=== PATIENT | male | born 1960 | race Caucasian/White ===

== ENCOUNTER 2020-12-20 06:55 | Observation (INO) | payer BC ==
[2020-12-16 10:25] LABS: BASOPHILS # (AUTO) 0.1 (0.0-0.1); BASOPHILS % 0.7 % (0.0-1.0); EOSINOPHILS # (AUTO) 0.1 (0.0-0.4); EOSINOPHILS % 0.9 % (0.0-6.0); HEMATOCRIT 43.2 % (38.2-49.6); HEMOGLOBIN 15.3 g/dL (14.0-18.0); LYMPHOCYTES # (AUTO) 1.8 (1.0-3.2); LYMPHOCYTES % 18.9 % (18.0-39.1); MEAN CORPUSCULAR HEMOGLOBIN 33.8 pg (28-32); MEAN CORPUSCULAR HGB CONC 35.4 g/dL (31-35); MEAN CORPUSCULAR VOLUME 95.6 fL (81-99); MONOCYTES # (AUTO) 0.8 (0.2-0.8); MONOCYTES % 8.1 % (4.4-11.3); NEUTROPHILS # (AUTO) 6.9 (2.1-6.9); NEUTROPHILS % 70.9 % (38.7-80.0); PLATELET COUNT 190 x10e3/uL (140-360); RED BLOOD COUNT 4.52 x10e6/uL (4.3-5.7); RED CELL DISTRIBUTION WIDTH 12.3 % (11.7-14.4)
[2020-12-16 10:43] LABS: ANION GAP 17.2 mmol/L (8-16); BLOOD UREA NITROGEN 9 mg/dL (7-26); BUN/CREATININE RATIO 11 (6-25); CALCIUM 9.2 mg/dL (8.4-10.2); CARBON DIOXIDE 21 mmol/L (22-29); CHLORIDE 99 mmol/L (98-107); EST GLOMERULAR FILTRATION RATE > 60 ML/MIN (60-); GLUCOSE 134 mg/dL (74-118); POTASSIUM 4.2 mmol/L (3.5-5.1); SODIUM 133 mmol/L (136-145)
[~2020-12-20] VITALS: Ht 177.8 cm; Wt 106.6 kg
[~2020-12-20 06:55] MED LIST: BUMETANIDE1 MG PO; CEFAZOLIN SOD 1 GM/NS 50ML 100 ML IV ONE; CELECOXIB 200 MG CAP ONE; DEXAMETHASONE SOD PHOS 10 MG/1 ML VIAL ONE; GABAPENTIN 300 MG CAP ONE; GEMFIBROZIL600 MG; LOPID600 MG PO; LOSARTAN POTAS100 MG PO; METOPROLOL SUCC50 MG PO; SPIRONOLACTONE25 MG PO; VERAPAMIL ER120 MG PO; WELCHOL625 MG PO
[2020-12-20] MEDS ORDERED: VANCOMYCIN HCL 500 MG ONE ×2 (07:04→09:08)
[2020-12-20] MEDS ORDERED: SODIUM CHLORIDE 0.9% 500ML 500 ML ONE (07:04)
[2020-12-20] MEDS ORDERED: TRANEXAMIC ACID 1,000 MG/10 ML ML ONE (07:04)
[2020-12-20] MEDS ORDERED: BUPIVACAINE 7.5MG/ML /DEXTROSE 82.5MG/ML 2 ML AMP INJ ONE (07:29)
[2020-12-20] MEDS ORDERED: ROPIVACAINE 246.25 MG, EPINEPHRINE HCL 1:1000 1ML 0.5 MG, CLONIDINE HCL 0.08 MG, KETORO... INJ ONE ×5 (07:30)
[2020-12-20] MEDS ORDERED: KETOROLAC TROMETHAMINE 30 MG/ML VIAL IV PRN (09:45)
[2020-12-20] MEDS ORDERED: DOCUSATE SODIUM 100 MG CAP PO PRN (09:45)
[2020-12-20] MEDS ORDERED: HYDROCODONE/APAP 5MG-325MG TAB PO PRN (09:45)
[2020-12-20] MEDS ORDERED: ONDANSETRON HCL INJ 2MG/ML 2ML 2 MG/ML VIAL IV PRN (09:45)
[2020-12-20] MEDS ORDERED: ACETAMINOPHEN 650 MG SUPP PR PRN (09:45)
[2020-12-20] MEDS ORDERED: DIPHENHYDRAMINE HCL INJ 50 MG/ML VIAL IV PRN (09:45)
[2020-12-20] MEDS ORDERED: MORPHINE SULFATE INJ 2 MG/ML SYR ONE (10:13)
[2020-12-20] MEDS ORDERED: HYDROMORPHONE 1MG/1ML INJ ONE (10:38)
[2020-12-20 10:59] VITALS: BP 146/90
[2020-12-20 11:19] VITALS: BP 146/90
[2020-12-20 11:28] VITALS: BP 137/80
[2020-12-20] MEDS: SODIUM CHLORIDE 0.9% 1000ML 1,000 ML IV SCH (13:16)
[2020-12-20] MEDS: CEFAZOLIN SOD 1 GM/NS 50ML 50 ML IV SCH ×2 (13:16→21:36)
[2020-12-20] MEDS: HYDROCODONE/APAP 7.5MG-325MG 1 EA TAB PO PRN ×2 (14:34→21:35)
[2020-12-20 16:00] VITALS: BP 121/83
[2020-12-20] MEDS: CELECOXIB 200 MG CAP PO SCH (16:21)
[2020-12-20] MEDS: ASPIRIN 325 MG TAB PO SCH (16:21)
[2020-12-20] MEDS ORDERED: CELECOXIB 100 MG CAP PO SCH (17:00)
[2020-12-20] MEDS ORDERED: NEOSTIGMINE 1 MG/ML 10ML VIAL ONE (17:44)
[2020-12-20] MEDS ORDERED: LIDOCAINE HCL 2% LOCAL INJ 5 ML SDV VIAL INJ ONE (17:44)
[2020-12-20] MEDS ORDERED: ROCURONIUM BROMIDE 10 MG/ML 5ML VIAL IV ONE (17:44)
[2020-12-20] MEDS ORDERED: LIDOCAINE HCL 2% JELLY 5 ML TUBE ONE (17:44)
[2020-12-20] MEDS ORDERED: GLYCOPYRROLATE INJ 0.2 MG/ML VIAL ONE (17:44)
[2020-12-20] MEDS ORDERED: SEVOFLURANE INHAL SOLN 250 ML PEN BTL ONE (17:44)
[2020-12-20] MEDS ORDERED: ONDANSETRON HCL INJ 2MG/ML 2ML 2 MG/ML VIAL ONE (17:44)
[2020-12-20] MEDS ORDERED: PROPOFOL IV EMULSION 10 MG/ML 20 ML VIAL ONE (17:44)
[2020-12-20] MEDS ORDERED: POVIDONE IODINE 0.05% 0.05 % ML PO ONE (17:44)
[2020-12-20 20:00] VITALS: BP_SYST 144; BP_SYST 149; BP_DIAS 76; BP_DIAS 93
[2020-12-20] MEDS ORDERED: ZOLPIDEM TARTRATE 5 MG TAB PO PRN (21:00)
[2020-12-21] VITALS: BP 128/75
[2020-12-21] MEDS: SODIUM CHLORIDE 0.9% 1000ML 1,000 ML IV SCH ×2 (02:56→07:43)
[2020-12-21 04:00] VITALS: BP 132/81
[2020-12-21] MEDS: CEFAZOLIN SOD 1 GM/NS 50ML 50 ML IV SCH (05:41)
[2020-12-21 06:27] LABS: HEMATOCRIT 35.9 % (38.2-49.6); HEMOGLOBIN 12.5 g/dL (14.0-18.0)
[2020-12-21 08:00] VITALS: BP 169/91
[2020-12-21 08:40] VITALS: BP 169/91
[2020-12-21] MEDS ORDERED: GEMFIBROZIL 600 MG TAB PO SCH (09:00)
[2020-12-21] MEDS ORDERED: METOPROLOL SUCCINATE 50 MG TAB XL PO SCH (09:00)
[2020-12-21] MEDS ORDERED: LOSARTAN POTASSIUM 100 MG TAB PO SCH (09:00)
[2020-12-21] MEDS ORDERED: COLESEVELAM HCL 625 MG TAB PO SCH (09:00)
[2020-12-21] MEDS: ASPIRIN 325 MG TAB PO SCH (09:17)
[2020-12-21] MEDS: CELECOXIB 200 MG CAP PO SCH (09:17)
[2020-12-21] MEDS ORDERED: ACETAMINOPHEN 1000 MG/100 ML IV PRN (09:45)
[2020-12-21 11:50] VITALS: BP 168/91
[2020-12-21 11:51] VITALS: BP 156/92
== END 2020-12-21 13:30 | disposition home or self-care (01) ==
LOC: OR 06:55 → PACU V 10:49 → MED/SURG 10:50
PROVIDERS: ADMIT Specialist; ATTEND Specialist
DX: M16.0 Bilateral primary osteoarthritis of hip (principal); E78.00 Pure hypercholesterolemia, unspecified; I10 Essential (primary) hypertension; Z20.822 Contact with and (suspected) exposure to COVID-19; R73.9 Hyperglycemia, unspecified
CPT/HCPCS: 27130; 36415 ×2; 72170; 80048; 85014; 85018; 85025; 86850; 86900; 86920; 97110; 97116 ×2; 97162; 97530 ×2; C1713 ×2; C1776 ×3; G0378 ×2; J0171; J0690 ×2; J1100; J1170; J1885; J2001 ×2; J2270; J2405; J2704; J2710; J2795; J3370; J7030 ×2; J7040; U0002